=== PATIENT | male | born 1970 | race Two or more races ===

== ENCOUNTER 2024-03-28 09:07 | Inpatient (IN) | payer MEDICAID, OTHER ==
[~2024-03-28] VITALS: Ht 180.3 cm; Wt 121.5 kg
[~2024-03-28 09:07] MED LIST: CYCL-837 PO; IBUP1TAB5 PO; PRED20TA2 PO
[2024-03-28] MEDS: cloNIDine HCL 0.1 MG TAB PO ONE (09:58)
[2024-03-28 10:16] LABS: Basophils # (auto) 0.1 10 ^3/uL (0-0.2); Basophils % (auto) 0.6 % (0.0-2.0); Eosinophils # (auto) 0.2 10 ^3/uL (0-0.8); Eosinophils % (auto) 1.7 % (0.0-7.0); Hemoglobin 13.7 g/dL (13.5-17.5); Lymphocytes # (auto) 1.8 10 ^3/uL (0.4-5.4); Lymphocytes % (auto) 18.9 % (10.0-50.0); Mean Corpuscular Hemoglobin 27.9 pg (28.0-32.0); Mean Corpuscular Hgb Conc. 33.4 g/dL (32.0-36.0); Mean Corpuscular Volume 83.7 fL (80.0-100.0); Monocytes # (auto) 0.4 10 ^3/uL (0-1.3); Monocytes % (auto) 4.3 % (0.0-12.0); Neutrophils % (auto) 74.5 % (37.0-80.0); Red Cell Distribution Width 14.7 % (11.8-14.3); White Blood Cell 9.4 10^3/uL (4.4-10.8)
[2024-03-28 10:20] LABS: Alanine Aminotransferase 43 U/L (7-40); Albumin 4.4 g/dL (3.2-4.8); Alkaline Phosphatase 69 U/L (46-116); Anion Gap 4 (5-15); Aspartate Aminotransferase 20 U/L (13-40); BUN/Creatinine Ratio 13.9 (10.0-20.0); Blood Urea Nitrogen 15 mg/dL (9-23); Calcium 9.8 mg/dL (8.7-10.4); Carbon Dioxide 33 mmol/L (20-30); Chloride 105 mmol/L (98-107); Glucose 124 mg/dL (74-106); Lipase 30 U/L (12-53); Potassium 3.6 mmol/L (3.5-5.1); Sodium 142 mmol/L (136-145)
[2024-03-28 10:21] LABS: Bilirubin, Total 0.3 mg/dL (0.2-1.0); Total Protein 7.2 g/dL (5.7-8.2)
[2024-03-28 10:51] LABS: Urine Bacteria None Seen /hpf (None Seen)
[2024-03-28 11:04] LABS: Urine Blood Negative /uL (Negative); Urine Clarity Clear (Clear); Urine Color Light-Yellow (Yellow); Urine Hyaline Cast FEW /lpf (0 - 2); Urine Mucus FEW (None Seen); Urine Protein, UAD Negative (Negative); Urine Specific Gravity 1.008 (1.001-1.035); Urine Urobilinogen Normal (Negative); Urine WBC <1 /hpf (0 - 3); Urine pH 5.5 (5.0-9.0)
[2024-03-28] MEDS: MORPHINE SULFATE 4 MG/ML SYR/VIAL IV ONE (13:29)
[2024-03-28] MEDS: ONDANSETRON HCL 4 MG/2 ML VIAL IV ONE (13:30)
[2024-03-28] MEDS ORDERED: ACETAMINOPHEN 325 MG TAB PO PRN ×2 (14:00)
[2024-03-28] MEDS ORDERED: MORPHINE SULFATE INJ 2 MG/ml SYRG IV PRN ×2 (14:00)
[2024-03-28] MEDS ORDERED: NITROGLYCERIN 0.4 MG SL TAB SL PRN (14:00)
[2024-03-28] MEDS ORDERED: ONDANSETRON HCL 4 MG/2 ML VIAL IV PRN (14:00)
[2024-03-28] MEDS ORDERED: hydrALAZINE HCL 20 MG/ML VL IV PRN (14:00)
[2024-03-28 14:32] LABS: Triglycerides 301 mg/dL (< 150)
[2024-03-28 14:33] LABS: LDL Cholesterol 77 mg/dL (< 100)
[2024-03-28 14:34] LABS: Cholesterol 172 mg/dL (< 200); HDL Cholesterol 55 mg/dL (40-59)
[2024-03-28] MEDS: PANTOPRAZOLE 40 MG/10 ML VIAL INJ IV ONE (14:41)
[2024-03-28] MEDS: NIFEdipine ER 30 MG TAB PO ONE (14:44)
[2024-03-28] MEDS: ATORVASTATIN 20 MG TAB PO SCH (23:27)
[2024-03-28] MEDS: HYDROcodone-ACET 5/325MG TAB PO PRN (23:27)
[2024-03-29 04:28] LABS: Basophils # (auto) 0.1 10 ^3/uL (0-0.2); Basophils % (auto) 0.7 % (0.0-2.0); Eosinophils # (auto) 0.2 10 ^3/uL (0-0.8); Eosinophils % (auto) 1.8 % (0.0-7.0); Hematocrit 39.9 % (41.0-53.0); Hemoglobin 13.4 g/dL (13.5-17.5); Lymphocytes # (auto) 2.8 10 ^3/uL (0.4-5.4); Lymphocytes % (auto) 31.5 % (10.0-50.0); Mean Corpuscular Hemoglobin 27.7 pg (28.0-32.0); Mean Corpuscular Hgb Conc. 33.6 g/dL (32.0-36.0); Mean Corpuscular Volume 82.6 fL (80.0-100.0); Monocytes # (auto) 0.4 10 ^3/uL (0-1.3); Monocytes % (auto) 4.6 % (0.0-12.0); Neutrophils # (auto) 5.5 10 ^3/uL (1.6-8.6); Neutrophils % (auto) 61.4 % (37.0-80.0); Red Blood Cells 4.83 10^6/uL (4.5-5.90); Red Cell Distribution Width 14.4 % (11.8-14.3)
[2024-03-29 04:44] LABS: Alanine Aminotransferase 40 U/L (7-40); Albumin 4.4 g/dL (3.2-4.8); Alkaline Phosphatase 57 U/L (46-116); Anion Gap 6 (5-15); Aspartate Aminotransferase 10 U/L (13-40); Blood Urea Nitrogen 15 mg/dL (9-23); Calcium 9.6 mg/dL (8.5-10.1); Carbon Dioxide 29 mmol/L (20-30); Chloride 104 mmol/L (98-107); Glucose 100 mg/dL (74-106); Potassium 3.6 mmol/L (3.5-5.1); Sodium 139 mmol/L (136-145)
[2024-03-29 04:45] LABS: Bilirubin, Total 0.4 mg/dL (0.2-1.0)
[2024-03-29 05:39] VITALS: PULSE 77; RESP 14; O2SAT 96
[2024-03-29 07:08] VITALS: BP 129/66; PULSE 79; RESP 16; TEMP 98.7; O2SAT 98
[2024-03-29 07:49] VITALS: BP 129/66; PULSE 99; RESP 16; TEMP 98.7; O2SAT 98
[2024-03-29 08:00] VITALS: PULSE 80
[2024-03-29] MEDS: PANTOPRAZOLE 40 MG/10 ML VIAL INJ IV SCH (08:07)
[2024-03-29] MEDS: NIFEdipine ER 30 MG TAB PO SCH (08:07)
[2024-03-29] MEDS ORDERED: ENOXAPARIN SOD 40 MG/0.4 ML SYRINGE SC SCH (10:00)
[2024-03-29] MEDS ORDERED: ASPirin 81 mg TAB PO SCH (10:00)
[2024-03-29 11:11] VITALS: BP 129/66; TEMP 37.1
[2024-03-29] MEDS ORDERED: AMLO1TAB23 PO (11:18)
[2024-03-29] MEDS ORDERED: IBU600T PO (11:18)
[2024-03-29] MEDS ORDERED: TRAM50TA2 PO (11:18)
== END 2024-03-29 12:05 | disposition home or self-care (01) | DRG 347 ==
LOC: ER 09:07 → TELE 13:58 → TELE-CENTR 03-29 07:05
PROVIDERS: ADMIT Registered Nurse; ATTEND Registered Nurse
DX: S39.82XA Other specified injuries of lower back, initial encounter (principal); E66.9 Obesity, unspecified; K64.8 Other hemorrhoids; I10 Essential (primary) hypertension; Z68.37 Body mass index [BMI] 37.0-37.9, adult; Z79.899 Other long term (current) drug therapy; X58.XXXA Exposure to other specified factors, initial encounter; Y93.89 Activity, other specified; Y92.89 Other specified places as the place of occurrence of the external cause; Y99.8 Other external cause status
CPT/HCPCS: 36415; 71045; 74176; 80053; 80061; 81001; 83036; 83690; 84443; 85025; 93005; 96374; C9113; G0378

== ENCOUNTER 2025-02-17 10:22 | Emergency (ER) | payer MEDICAID, OTHER ==
[~2025-02-17] VITALS: Ht 180.3 cm; Wt 121.0 kg
[~2025-02-17 10:22] MED LIST changes: +AMLO1TAB23 PO; +IBU600T PO; +TRAM50TA2 PO
--- NOTE | 2025-02-17 11:18 | DVH ---
CHEST RADIOGRAPH Indication: COUGH PAIN WITH INSPIRATION Technique: Frontal and lateral view of the chest was obtained Comparison: None FINDINGS: Lines and Tubes: None Lungs: Mild increased interstitial prominence Pleura: No effusion. No pneumothorax. Cardiomediastinal contours: Unremarkable Bones: Unremarkable IMPRESSION: Possible mild viral pneumonia or congestion
[2025-02-17 12:43] VITALS: BP 132/97; PULSE 82; RESP 18; TEMP 99; O2SAT 95
[2025-02-17] MEDS ORDERED: PROM1SOL4 PO (12:47)
[2025-02-17] MEDS ORDERED: DOXY-286 PO (12:47)
[2025-02-17] MEDS ORDERED: PSEU120T18 PO (12:47)
--- NOTE | 2025-02-17 12:47 | ED.PDOC ---
SOB-HPI HPI Comments 54 year old male presents with a chief complaint of a productive cough with yellow-green phlegm for 10 days. Associated with left rib pain not taking Meds Only has a history of hypertension Denies fevers chills night sweats unintentional weight loss Denies persistent chest pain, shortness of breath, leg swelling Denies history of asthma nor any breathing conditions Denies history of pneumonia Denies recent international travel Chief Complaint: Cough Time Seen by MD: 10:44 Primary Care Provider: AUTUMN Chamberlain notes: Nurses Notes, Medications, Allergies Information Source: Patient Mode of Arrival: Ambulatory Family History Family History: No family hx of DM, No family hx of Heart dana, No family hx of HTN, No family hx ofKidney dana, No family hx of Liver dana, No family hx of Lung dana, No family hx of Stroke, Family hx of Cancer Social History Smoker: Non-Smoker Alcohol: Occasionally Drugs: Denies Drug Use Lives In: Home All Other Systems: Reviewed and Negative (Per HPI) Physical Exam General Appearance: No Apparent Distress, Normal HEENT: Normal ENT Inspection, Pharynx Normal, TMs Normal Neck: Full Range of Motion, Non-Tender, Normal, Normal Inspection Respiratory: Chest Non-Tender, Lungs Clear, No Accessory Muscle Use, No Respiratory Distress, Normal Breath Sounds Cardiovascular: No Murmur, No Gallop, Regular Rate/Rhythm Breast Exam: Deferred Gastrointestinal: No Organomegaly, Non Tender, No Pulsatile Mass, Normal Bowel Sounds, Soft Genitalia: Deferred Pelvic: Deferred Rectal: Deferred Extremities: No calf tenderness, Normal capillary refill, Normal inspection, Normal range of motion, Non-tender, No pedal edema Musculoskeletal : Apperance: Normal Neurologic: Alert, No Motor Deficits, Normal Affect, Normal Mood, No Sensory Deficits Cerebellar Function: Normal Reflexes: Normal Skin: Dry, Normal Color, Warm Lymphatic: No Adenopathy Was a procedure done? Was a procedure done?: No Differential Dx Differential Diagnosis: Bronchitis, URI X-Ray, Labs, Meds, VS Vital Signs Date Time Temp Pulse Resp B/P (MAP) Pulse Ox O2 Delivery O2 Flow Rate FiO2 02/17/25 12:43 82 18 95 Room Air 02/17/25 12:43 99.0 82 18 132/97 (109) 95 99.0 02/17/25 10:52 18 95 Room Air* 0 21 02/17/25 10:30 99.1 82 18 133/97 (109 95 99.1 Current Medications Medications (Trade) Dose Ordered Sig/Trey Route Start Time Stop Time Status Last Admin Ceftriaxone Sodium (Rocephin) 1,000 mg ONCE ONCE IM 02/17/25 12:30 02/17/25 12:40 DC 02/17/25 12:54 Dexamethasone Sodium Phosphate (Decadron Injection) 10 mg ONCE ONCE IM 02/17/25 12:30 02/17/25 12:40 DC 02/17/25 12:55 PATIENT: ANTONIO BARR JRACCT: [id number]: [id number] : 1970 LOC: ER ROOM / BED: / AGE / SEX: 54 / M ADM STATUS: REG ER SERVICE [id number] ORDERING PHYSICIAN: SARAH MULLINS LIFE SCIENTIST PROCEDURE(s): CXR2 - CHEST TWO VIEWS ROUTINE REASON: COUGH PAIN WITH INSPIRATION ORDER NUMBER(s): [id number], ACCESSION NUMBER(s): [id number] CHEST RADIOGRAPH Indication: COUGH PAIN WITH INSPIRATION Technique: Frontal and lateral view of the chest was obtained Comparison: None FINDINGS: Lines and Tubes: None Lungs: Mild increased interstitial prominence Pleura: No effusion. No pneumothorax. Cardiomediastinal contours: Unremarkable Bones: Unremarkable IMPRESSION: Possible mild viral pneumonia or congestion ATED BY: JAN VIVAR MD DICTATED DATE/TIME: 02/17/25 1116 SIGNED BY: JAN VIVAR MD SIGNED DATE/TIME: 02/17/25 111 X-Ray, Labs, Meds, VS Comment The patient's presentation and chest x-ray findings are consistent with pneumonia. In the ED, the patient was given ceftriaxone and Decadron x 1 The patient is overall well-appearing and does not appear to be clinically toxic. Therefore, the patient is a good candidate for outpatient treatment. The patient was given Antibiotics to treat for pneumonia. The patient was reassessed throughout the ED visit and remained stable. The patient did not require any supplemental oxygen while in the ED. The patient was able to ambulate as well as tolerate p.o. intake in the ED. discussed the management plan with the patient who was in agreement, strict return precautions to the ED were given On reevaluation, patient had symptomatic improvement. Patient is stable for discharge at this time. External notes reviewed. Test results and diagnostic imaging interpreted. All diagnostic findings, discharge care, education and instructions provided Follow-up with PCP in 2 to 3 days Patient verbalized understanding and agreed to treatment plan Vital signs stable, afebrile, no acute distress noted Patient ambulatory with strong steady gait Advised to return precautions for any new or worsening symptoms, return to ER immediately for re-evaluation Patient is aware that the purpose of this visit was for an acute medical emergen cy requiring emergent stabilization. Chronic conditions, including malignancies have not been ruled out. Patient is instructed to follow up with PCP as directed and discharge instructions for continued care and workup. If unable to arrange follow-up, patient is to return to the emergency department for reassessment. Patient (parent or legal guardian if applicable) was given verbal and written discharge instructions and acknowledges understanding. Time of 1ST Reevaluation: 12:46 Reevaluation 1ST: Improved Patient Education/Counseling: Diagnosis, Treatment Family Education/Counseling: Diagnosis, Treatment Departure 1 Departure Time of Disposition: 12:46 Impression: Primary Impression: PNA (pneumonia) Qualified Codes: J18.9 - Pneumonia, unspecified organism Disposition: HOME / SELF CARE / HOMELESS Condition: Stable e-Prescriptions Promethazine-Dm (Promethazine Dm 6.25-15 mg/5Ml) 1 Arianna Arianna 5 ML PO TID for 10 Days, #150 ML 0 Refills Prov: SARAH MULLINS NP 02/17/25 Pseudoephedrine-Guaifenesin (Mucinex D) 1 Tab Tab 1 TAB PO BID for 10 Days, #20 TAB 0 Refills Prov: SARAH MULLINS NP 02/17/25 Doxycycline Hyclate (DOXYCYCLINE HYCLATE) 100 Mg Tab 1 TAB PO BID for 7 Days, #14 TAB 0 Refills Prov: SARAH MULLINS NP 02/17/25 Discharged With: Self Critical Care Note Critical Care Time?: No Stability Stability form required: No Heart Score Heart Score: Heart Score Response (Comments) Value History N/A 0 EKG N/A 0 Age N/A 0 Risk Factors N/A 0 Troponin N/A 0 Total 0 SARAH MULLINS NP Feb 17, 2025 12:47
[2025-02-17] MEDS: cefTRIAXone SOD 1,000 MG VL IM ONE (12:54)
[2025-02-17] MEDS: DexAMETHasone SOD PHOS 10MG/1ML VIAL INJ IM ONE (12:55)
== END 2025-02-17 13:06 | disposition home or self-care (01) ==
LOC: ER 10:22
DX: J18.9 Pneumonia, unspecified organism (principal)
CPT/HCPCS: 71046; 96372; 99284; J0696; J1100